=== PATIENT | female | born 1960 | race Caucasian/White ===

== ENCOUNTER → 2016-09-23 | Outpatient (CLI) | payer OTHER | LOC: FIMAGING 12:29 | PROVIDERS: ATTEND Internal Medicine | DX: Z12.31 Encounter for screening mammogram for malignant neoplasm of breast (principal) | CPT/HCPCS: G0202 ==

== ENCOUNTER → 2017-09-05 | Outpatient (CLI) | payer OTHER | LOC: BMCIMAGING 13:10 | PROVIDERS: ATTEND Emergency Medicine | DX: S09.93XA Unspecified injury of face, initial encounter (principal); W19.XXXA Unspecified fall, initial encounter ==

== ENCOUNTER → 2017-09-18 | Outpatient (CLI) | payer OTHER | LOC: FIMAGING 13:31 | PROVIDERS: ATTEND Internal Medicine | DX: S02.602A Fracture of unspecified part of body of left mandible, initial encounter for closed fracture (principal); G31.9 Degenerative disease of nervous system, unspecified ==

== ENCOUNTER 2018-08-13 19:12 | Emergency (ER) | payer OTHER ==
[2018-08-13 19:18] VITALS: BP 94/54
--- NOTE | 2018-08-13 19:18 | EDPHY ---
H & P Time Seen by Provider: 08/13/18 19:15 HPI/ROS: HPI: This is a 58-year-old female who presents with Chief Complaint: Right wrist injury Location: Right wrist Quality: Injury, pain Duration: Prior to arrival Signs and Symptoms: No bleeding, no radiation, no numbness, no weakness, no tingling, no incontinence, + decreased range of motion, no swelling, + pain, no fever, + deformity, no skin color changes Timing: Acute Severity: 11/14 Context: Patient is right-hand dominant, sitting on a chair, and accidentally fell off while she was dancing and landed on her right outstretched hand. She reports that she felt immediate, constant, severe radiating pain down into all of her fingers in her right wrist. She noticed obvious deformity with decreased range of motion. Denies LOC/head injury/neck pain/dizziness/nausea/ vomiting/amnesia. Denies paresthesias, numbness, weakness. Modifying Factors: None Comment: ROS: A comprehensive 10 system review of systems is otherwise negative aside from elements mentioned in the history of present illness. MEDICAL/SURGICAL/SOCIAL HISTORY: Medical history: Generally healthy. Does not take any regular medications. Surgical history: Denies Social history: Employed. . CONSTITUTIONAL: Physically fit adult female, awake and alert, no obvious distress HEENT: Atraumatic and normocephalic, PERRL, EOMI. Nares patent; no rhinorrhea; no nasal mucosal edema. Tympanic membranes clear. Oropharynx clear, no exudate and moist pink mucosa. Airway patent. No lymphadenopathy. No meningismus. Cardiovascular: Normal S1/S2, regular rate, regular rhythm, without murmur rub or gallop. PULMONARY/CHEST: Symmetrical and nontender. Clear to auscultation bilaterally. Good air movement. No accessory muscle usage. ABDOMEN: Soft, nondistended, nontender, no rebound, no guarding, no peritoneal signs, no masses or organomegaly. No CVAT. 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 No scaphoid tenderness. Able to wiggle all 5 fingers without any difficulty. Light touch sensation intact. no clubbing, no cyanosis or edema. NEUROLOGICAL: no focal neuro deficits. GCS 15. SKIN: Warm and dry, no erythema. no rash. Good capillary refill. Source: Patient Exam Limitations: No limitations Constitutional: Initial Vital Signs Temperature (C) 36.5 C 08/13/18 19:16 Heart Rate 69 08/13/18 19:16 Respiratory Rate 16 08/13/18 19:16 Blood Pressure 94/54 L 08/13/18 19:16 O2 Sat (%) 97 08/13/18 19:16 O2 Delivery Mode Room Air Allergies/Adverse Reactions: No Known Allergies Allergy (Unverified 08/13/18 19:15) Home Medications: Medication Instructions Recorded Synthroid 08/13/18 oxyCODONE/APAP 5/325 [Percocet 1 - 2 tab PO Q4H PRN #12 tab 08/13/18 5/325 (*)] Medical Decision Making - Diagnostics Imaging Results: Imaging Impressions Wrist X-Ray 08/13/18 19:25 Impression: Acute Colles' fracture with an associated ulnar styloid avulsion fracture. Procedures: Procedure: Angulated fracture reduction. The angulated fracture of the right distal radius was reduced using counter traction technique without complications. Post reduction the patient's neurovascular exam is normal. The procedure was performed by myself. Procedure: Splint placement. A right sugar-tong Ortho Glass splint and sling were applied. After application of the splint I returned and re-examined the patient. The splint was adequately immobilizing the joint and distal to the splint the patient's circulation and sensation was intact. ED Course/Re-evaluation: Right wrist x-ray ordered and my read via bedside shows displaced distal radius fracture, ulnar styloid fracture Given Percocet x2 and p.o. Zofran 4 mg Colles fracture with angulation requiring reduction Placed in sugar-tong Ortho Glass splint, sling, orthopedic follow-up for impending surgery No signs of neurovascular compromise/tenting of skin/compartment syndrome/ extremities and joints examined above and below area of concern and are neurovascularly intact. This patient was seen under the supervision of my secondary supervising physician. I evaluated and cared for this patient with attending. Differential Diagnosis: Differential diagnosis includes but is not limited to radial fracture, ulnar fracture, dislocation, scaphoid fracture, metacarpal fracture, sprain, contusion , nerve injury, ligament injury. - Data Points Medications Given: Discontinued Medications Ondansetron HCl (Zofran Odt) 4 mg PO EDNOW ONE Stop: 08/13/18 19:26 Last Admin: 08/13/18 19:36 Dose: 4 mg Oxycodone/Acetaminophen (Percocet 5/325) 2 tab PO EDNOW ONE Stop: 08/13/18 19:26 Last Admin: 08/13/18 19:36 Dose: 2 tab Departure - Departure Disposition: Home, Routine, Self-Care Clinical Impression: Closed fracture of right distal radius Qualifiers: Encounter type: initial encounter Fracture morphology: unspecified fracture morphology Qualified Code(s): S52.501A - Unspecified fracture of the lower end of right radius, initial encounter for closed fracture Closed fracture of styloid process of right ulna Qualifiers: Encounter type: initial encounter Fracture alignment: displaced Qualified Code( s): S52.611A - Displaced fracture of right ulna styloid process, initial encounter for closed fracture Condition: Good Instructions: Wrist Fracture in Adults (ED), How to Use a Sling (ED), Splint Care (ED), ORIF of a Wrist Fracture (DC) Additional Instructions: Keep the splint dry and in place until seen by Orthopedics. Take Tylenol 650 mg every 4 hours and/or Ibuprofen 600 mg every 8 hours with food as needed for pain. Use Percocet every 6 hours as needed for severe/break through pain. Do not use Tylenol and Percocet concomitantly. Take Zofran 1 tab every 4-6 hours as needed for nausea, vomiting. Apply ice for 30 minutes at a time; 2-3 times per day for the next 1-2 days. Follow up with Orthopedics in 3-5 days at which time they will evaluate you and likely recommend surgery. Follow-Up: Please follow-up as noted above. Follow-up sooner if your condition worsens or if you develop any new problems. Call as soon as possible for an appointment. Be clear when you call for an appointment that this is an Emergency Department follow-up. Contact the Emergency Department if you have trouble arranging follow-up care. Our referrals are not based on your insurance network. When time allows, contact your insurance carrier to verify the referral physician is in your plan. If not, get a referral for an in-network controller. Referrals: Elisha Whitmore MD [Primary Care Provider] - As per Instructions Vesna Mccarty MD [Medical Doctor] - As per Instructions Prescriptions: oxyCODONE/APAP 5/325 [Percocet 5/325 (*)] 1 - 2 tab PO Q4H PRN #12 tab PRN Reason: Pain, Severe
[2018-08-13] MEDS ORDERED: ONDANSETRON DISINTEGRATING 4 MG TAB PO ONE (19:25)
[2018-08-13] MEDS ORDERED: OXYCODONE/APAP 5/325 TAB PO ONE (19:25)
[2018-08-13] MEDS ORDERED: ONDANSETRON 4MG PREPACK#2 BTL TAKEHOME ONE (19:37)
[2018-08-13] MEDS ORDERED: OXYCODONE/APAP 5/325MG PREPACK#4 BTL TAKEHOME ONE (19:37)
== END 2018-08-13 20:33 | disposition home or self-care (01) ==
DX: S52.531A Colles' fracture of right radius, initial encounter for closed fracture (principal); S52.611A Displaced fracture of right ulna styloid process, initial encounter for closed fracture; W07.XXXA Fall from chair, initial encounter; Y93.41 Activity, dancing
CPT/HCPCS: A4565